=== PATIENT | female | born 1985 | race Caucasian/White ===

== ENCOUNTER 2018-10-27 16:54 | Observation (INO) ==
[2018-10-27] MEDS ORDERED: *HR* Promethazine 25 MG/ML VIAL IVP PRN (19:52)
[2018-10-27] MEDS ORDERED: *HR* Belladonna Alkaloids/Opium 30 MG RECTAL SUPPOSITORY RC PRN (19:52)
[2018-10-27] MEDS ORDERED: OXYCODONE Oral CONC 10 MG/0.5 ML ORAL.SYG SL PRN (19:52)
[2018-10-27] MEDS ORDERED: Ketorolac 15 MG/ML VIAL IVP PRN (19:52)
[2018-10-27] MEDS ORDERED: Ondansetron 4 MG/2 ML VIAL IVP PRN (19:52)
[2018-10-27] MEDS ORDERED: Naloxone 0.4 MG/ML INJ IVP PRN (19:52)
--- NOTE | 2018-10-27 19:59 | Urology History & Physical ---
Date of Encounter: 10/27/18 Time of Encounter: 19:58 Assessment and Plan (1) Ureteral stone with hydronephrosis Status: Acute pt required transfer for large mid ureteral stone. urine has been sent for culture but UA not definative for UTI. started on ABX. no fever. elevated WBC likely reactive. renal function preserved. pt does not wish to attempt trial of passage. states pain too severe and concerned about sepsis. plan for in situ ureteroscopic stone extraction with holmium laser and JJ stent placement. she understands the procedure including risks - pain, stent discomfort, injury to the uirnary tract, stricture, UTI/infection, reaction to contrast, inability to retrieve stone requiring second surgery. History of Present Illness Chief complaint: left flank pain HPI: Ms. Gastelum is a 33 year old female presented to [facility] with left flank pain. hx of kidney stones. ct reveals a 7 mm mid/distal ureteral stone. no fever. +nausea. Past Med Surg Social Fam HX - Past Medical History Medical history: hypertension, kidney stones, thyroid disease Additional medical history: allergies Psychiatric history: anxiety - Past Surgical History Surgical History: appendectomy, cholecystectomy, orthopedic, other (Right wrist ganglion cystectomy) Additional surgical history: Rt wrist ganglion cyst removal, cyst removed from abd. - Social History Smoking Status: Never smoker Smokeless Tobacco Status: No Alcohol use: none Drug use: none Medications and Allergies Cetirizine HCl [Zyrtec] 10 mg PO DAILY 04/19/15 [History] ClonazePAM [Klonopin] 0.5 mg PO BID 04/19/15 [History] Levothyroxine [Synthroid] 75 mcg PO 0630 01/30/16 [History] Ibuprofen [Motrin] 800 mg PO Q8HR #30 tablet 08/31/16 [Rx] Loratadine/Pseudophed (12 HR) [Claritin D (12HR)] 1 each PO BID #20 tab.er.12h 08/31/16 [Rx] Metoprolol [Lopressor] 150 mg PO BID 09/02/16 [History] HYDROcodone/Acet 5/325 mg [[place] 5-325 mg] 1 tab PO Q6H PRN 4 Days #16 tab 09/12/17 [Rx] OxyCODONE/APAP 5/325 [Percocet 5/325 MG] 1 each PO Q6HR PRN 4 Days #16 tablet 09/12/17 [Rx] Allergy/AdvReac Type Severity Reaction Status Date / Time No Known Allergies Allergy Verified 09/12/17 21:36 Review of Systems - Constitutional no chills, no fever(s), no malaise - EENT Nose, mouth and throat: no dizziness - Cardiovascular no chest pain - Respiratory no cough - Gastrointestinal abdominal pain, nausea - Genitourinary Genitourinary: flank pain - Musculoskeletal back pain - Integumentary no erythema - Neurological no confusion - Psychiatric no anxiety - Hematologic/Lymphatic no easy bruising Exam - General physical appearance Present: no distress, no pain - Eyes Present: PERRL, conjunctiva is clear - ENT Present: normal nares, no congestion - Neck Present: no masses, no lymphadenopathy - Respiratory Present: normal respiratory effort - Cardiovascular Cardiovascular exam IM: RRR - Abdomen Abdomen: Present: soft. Absent: suprapubic tenderness - Integumentary Present: no rash, no growths, no abnormal pigmentation - Neurologic Present: normal coordination. Absent: disoriented, confused - Additional Findings mild CVA tenderness Urology Results - Labs All other labs normal.
[2018-10-27] MEDS: clonazePAM 1 MG TABLET PO SCH (23:32)
[2018-10-27] MEDS: *HR* HYDROcodone/Acet 5/325 mg TABLET PO PRN (23:33)
[2018-10-27] MEDS: Metoprolol 100 MG TABLET PO SCH (23:33)
[2018-10-27] MEDS: 0.9 % Sodium Chloride 1,000 ML IVC SCH (23:34)
[2018-10-28] MEDS: *HR* HYDROcodone/Acet 5/325 mg TABLET PO PRN ×2 (07:17→11:34)
[2018-10-28] MEDS ORDERED: Loratadine 10 MG TABLET PO SCH (09:00)
[2018-10-28] MEDS ORDERED: cefTRIAXone 1,000 MG in Water for inj. (sterile) 20 ML 10 ML IVP SCH (09:00)
[2018-10-28] MEDS: Metoprolol 100 MG TABLET PO SCH (09:41)
[2018-10-28] MEDS: clonazePAM 1 MG TABLET PO SCH (09:41)
[2018-10-28] MEDS: 0.9 % Sodium Chloride 1,000 ML IVC SCH (09:42)
--- NOTE | 2018-10-28 13:47 | Anesthesia Evaluation PreOp ---
<Edna Packer - Last Filed: 10/28/18 13:44> Date of Encounter: 10/28/18 - Past History Planned Operation: R-USE w/laser lithotripsy & JJ stent [place] History: Other (Anxiety/Depression) Other Medical History: Renal (Kidney stones), Thyroid (Thyroid dz) Anesthesia History: No Prior Anesthetic Complications, Past Anesthesia (Appy, Debbie, R-ganglion cysectomy, Abdominal Cyst excision) Alcohol Use: none Drug use: none Medications and Allergies Cetirizine HCl [Zyrtec] 10 mg PO DAILY 04/19/15 [History] ClonazePAM [Klonopin] 0.5 mg PO BID 04/19/15 [History] Levothyroxine [Synthroid] 75 mcg PO 0630 01/30/16 [History] Ibuprofen [Motrin] 800 mg PO Q8HR #30 tablet 08/31/16 [Rx] Loratadine/Pseudophed (12 HR) [Claritin D (12HR)] 1 each PO BID #20 tab.er.12h 08/31/16 [Rx] Metoprolol [Lopressor] 150 mg PO BID 09/02/16 [History] HYDROcodone/Acet 5/325 mg [[place] 5-325 mg] 1 tab PO Q6H PRN 4 Days #16 tab 09/12/17 [Rx] OxyCODONE/APAP 5/325 [Percocet 5/325 MG] 1 each PO Q6HR PRN 4 Days #16 tablet 09/12/17 [Rx] Allergy/AdvReac Type Severity Reaction Status Date / Time No Known Allergies Allergy Verified 09/12/17 21:36 - Meds/Allergy Pre-op Review Medications Reviewed: Yes Allergies Reviewed: Yes Beta Blockers on Current Med List: Yes (Metoprolol) If Beta Blockers taken, Date/Time (Last Dose taken): 10/28/2018 @ 0941 Anesthesia Results - Labs Laboratory Results POC Glucose 103 mg/dL (70-99) H 10/28/18 10:44 - Imaging Additional studies: CT/CT abd pelvis wo no iv no oral IMPRESSION: 1. There is 6 mm obstructing calculus in the mid to distal left ureter in the upper pelvis causing mild hydronephrosis and hydroureter. 2. A couple of punctate nonobstructing right renal calculi. 3. Small sliding hiatal hernia. Anesthesia Exam Vital Signs Temp Pulse Resp BP Pulse Ox 10/28/18 10:46 97.6 F 73 18 134/76 95 10/28/18 09:52 99 10/28/18 06:35 97.9 F 65 18 143/87 99 10/28/18 03:46 98.6 F 80 19 115/65 98 10/28/18 00:20 98.1 F 66 19 119/74 99 10/27/18 20:55 98.0 F 57 18 121/75 100 Intake and Output 10/27/18 10/28/18 10/28/18 23:59 07:59 15:59 Intake Total 1010 / 1010 Output Total 400 / 400 400 / 400 Balance -400 / -400 610 / 610 Intake: IV Fluids 1010 / 1010 0.9 % Sodium Chloride 1,000 ML 1000 / 1000 @ 75 mls/hr IVC .[id number] [facility] Rx #:[id number] Rocephin 1,000 MG In Water for inj. (sterile) 10 ML @ 600 mls/ hr IVP DAILY [facility] Rx#:[id number] Oral 0 / 0 Output: Urine 400 / 400 400 / 400 Other: Meal NPO Percent of Meal Consumed 0% # Voids 1 Weight 123.5 kg 123.2 kg Blood Glucose* 85 103 Patient Weight 10/28/18 23:59 Weight 123.2 kg Height: 5'4" Weight: 271# BMI = 47 NPO (# of Hours): MNOc - HEENT Pupil (Motor): Pupils equal, EOMI Mallampati: II Teeth: Normal Oral Opening: Greater than 3 - [place] [place] LOC: Oriented [place] [place] Motor: Normal RUE, Normal LUE, Normal RLE, Normal LLE, Normal Face [place] [place] Sensory: Normal: RUE, LUE, RLE, LLE, Face - Cardiac Rhythm: Regular Murmur: None - Pulmonary Breath Sounds: bilateral Clear Respiratory Effort: Symmetrical Anesthesia Assess/Plan ASA Score: 3 (MO/BMI = 47, HTN, Anxiety/Depression, HYpothryoidism) Level of consciousness: Cooperative, Oriented Anesthetic Plan: General Monitoring Plan: Standard Monitors Recovery Plan: PACU Anes Supervising Prov Stmt: PT seen/evaluated, R&B discussed, questions answered and consent obtained. - MD Maritza <Sinan Valenzuela - Last Filed: 10/28/18 17:55> Date of Encounter: 10/28/18 Time of Encounter: 17:54 - Past History Cardiac History: HTN Pulmonary History: Denies Any Significant HX Other Medical History: GERD Anesthesia Exam Pain Scale: 0 Pain Scale Used: Numeric (1 - 10)
[2018-10-28] MEDS ORDERED: *HR* HYDROmorphone (PF) 1 MG/ML SYRINGE IVP PRN ×2 (13:58→19:28)
[2018-10-28] MEDS ORDERED: *HR* HYDROmorphone 2 MG TABLET PO PRN ×2 (13:58→19:28)
[2018-10-28] MEDS ORDERED: *HR* OxyCODONE Immed Rel 5 MG TABLET PO PRN ×2 (13:58→19:28)
[2018-10-28] MEDS ORDERED: Acetaminophen IV 1,000 MG/100 ML INFUS..BTL IVPB ONE (14:02)
[2018-10-28] MEDS ORDERED: Famotidine 20 MG/2 ML VIAL IVP ONE (14:02)
[2018-10-28] MEDS ORDERED: Pregabalin 75 MG CAPSULE PO ONE (14:02)
--- NOTE | 2018-10-28 18:03 | Discharge Summary ---
Date of Encounter: 10/28/18 Time of Encounter: 18:00 - Discharge Diagnosis (1) Ureteral stone with hydronephrosis Priority: Primary Status: Resolved - Hospital Course Hospital course: Ms. Gastelum is a 33 year old female admitted with a 6-7 mm right midureteral stone. Status post on extraction and stent placement. Plan to discharge after surgery. - Time Spent with Patient Total time spent providing and/or coordinating discharge services: Labs on day of discharge: Labs from last 24 hours 10/28/18 10/28/18 10:44 05:45 POC Glucose 103 H 85 - Discharge Medications Prescriptions: New Sulfamethoxazole/Trimeth DS [Bactrim DS] 1 each PO BID #10 tablet Continue Ibuprofen [Motrin] 800 mg PO Q8HR #30 tablet Loratadine/Pseudophed (12 HR) [Claritin D (12HR)] 1 each PO BID #20 tab.er.12h HYDROcodone/Acet 5/325 mg [[place] 5-325 mg] 1 tab PO Q6H PRN 4 Days #16 tab PRN Reason: Pain ClonazePAM [Klonopin] 0.5 mg PO BID Cetirizine HCl [Zyrtec] 10 mg PO DAILY Levothyroxine [Synthroid] 75 mcg PO 0630 Metoprolol [Lopressor] 150 mg PO BID Discontinued OxyCODONE/APAP 5/325 [Percocet 5/325 MG] 1 each PO Q6HR PRN 4 Days #16 tablet PRN Reason: Pain Home Medications: Cetirizine HCl [Zyrtec] 10 mg PO DAILY 04/19/15 [History] ClonazePAM [Klonopin] 0.5 mg PO BID 04/19/15 [History] Levothyroxine [Synthroid] 75 mcg PO 0630 01/30/16 [History] Ibuprofen [Motrin] 800 mg PO Q8HR #30 tablet 08/31/16 [Rx] Loratadine/Pseudophed (12 HR) [Claritin D (12HR)] 1 each PO BID #20 tab.er.12h 08/31/16 [Rx] Metoprolol [Lopressor] 150 mg PO BID 09/02/16 [History] HYDROcodone/Acet 5/325 mg [[place] 5-325 mg] 1 tab PO Q6H PRN 4 Days #16 tab 10/28/18 [Rx] Sulfamethoxazole/Trimeth DS [Bactrim DS] 1 each PO BID #10 tablet 10/28/18 [Rx] Allergies/Adverse Reactions: Allergy/AdvReac Type Severity Reaction Status Date / Time No Known Allergies Allergy Verified 09/12/17 21:36 Date of admission: 10/27/18 20:23 Primary care physician: Mark Merida MD Discharging clinician: Buzz Barney Anticipated date of discharge: 10/28/18 Exam Initial Vital Signs Temp Pulse Resp BP Pulse Ox 98.0 F 57 18 121/75 100 10/27/18 20:55 10/27/18 20:55 10/27/18 20:55 10/27/18 20:55 10/27/18 20:55 - General physical appearance Present: well developed, no distress - Patient Status Disposition: Home, Self-Care Condition: Good Functional capacity at discharge: independent ambulation Overall status at discharge: patient is progressing back to baseline - Discharge Instructions Follow Up With: Mark Merida MD [Primary Care Provider] - 11/02/18 1:00 pm (Please follow up as schedule with Iraida Rogers) Buzz Barney MD [Partnered Physician] - (My office will call with follow- up) Additional Instructions: Expect stent discomfort including urgency, frequency, burning on urination, light blood in the urine, flank pain during urination Stent can be removed after 72 hours by pulling on the string until the entire stent is removed. Patient can come to the office later this week for stent removal if needed Call if severe symptoms or fever over 101 degrees - Diet and Activity Activity: increase activity as tolerated Diet: advance to your usual diet
--- NOTE | 2018-10-28 18:05 | Operative Note ---
Date of procedure: 10/28/18 Pre-op diagnosis: 7 mm mid ureteral stone Post-op diagnosis: same Procedure: right stone extraction with holmum laser right retrograde pyelogram right JJ stent Anesthesia: GETA Surgeon: Buzz Barney Was there an licensed occupational therapy assistant present: No Estimated blood loss (cc): 0 Specimen: stone Condition: stable Disposition: PACU Procedure in Detail: PROCEDURE IN DETAIL: Patient was taken back to the operating room, positioned supine on the operating table. Anesthesia was applied without complication. They were moved into dorsal lithotomy. Careful attention was maintained to cushion all pressure points for patient's safety. They were prepped and draped in sterile fashion. Time-out was performed with the proper patient and procedure. A 21-[place] rigid cystoscope was inserted into the bladder without difficulty. Systematic examination of bladder revealed no abnormalities. The ureteral orifice was cannulated using a 5-[place] ureteral Catheter and a retrograde pyelogram was performed using Isovue. A filling defect was identified which corresponded to the stone. At that point, a zip wire was placed through the 5-[place] and confirmed in the renal pelvis with fluoroscopy. An 8-10 dilator was then placed over the zip wire to passively dilate the ureteral orifice. A semi-rigid ureteroscope was carefully inserted into the bladder and guided into the ureteral oriface. At that point, the stone was encountered and I felt that it required fragmentation for safe extraction. A 200 micron holmium laser fiber on a setting of 8 and 800 was used to fragment the stone into multiple pieces. The fragments were individually basketed out of the ureter with a 1.9 tipless basket. All stone in the ureter was removed. A 4.8 x 26 ureteral stent was placed over the zip wire under fluoroscopy without complication. The bladder was drained along with the stone fragments. They were collected and sent for stone analysis. The string was left attached to the stent and secured to the patient for easy removal in approximately 72 hours
[2018-10-28] MEDS ORDERED: Isovue-300 50 ML VIAL ONE (18:09)
[2018-10-28] MEDS ORDERED: *HR* Propofol 200 MG/20 ML VIAL IVP ONE (18:21)
[2018-10-28] MEDS ORDERED: *HR* FentaNYL (PF) 100 MCG/2 ML VIAL ONE (18:21)
[2018-10-28] MEDS ORDERED: Lidocaine -MPF 2% 2 ML VIAL ONE (18:21)
[2018-10-28] MEDS ORDERED: *HR* Midazolam HCl 2 MG/2 ML VIAL ONE (18:21)
[2018-10-28] MEDS ORDERED: Ondansetron 4 MG/2 ML VIAL ONE (18:40)
[2018-10-28] MEDS ORDERED: Dexamethasone 4 MG/ML VIAL ONE (18:40)
[2018-10-28] MEDS ORDERED: Ondansetron 4 MG/2 ML VIAL IVP PRN (19:28)
[2018-10-28] MEDS ORDERED: 0.9 % Sodium Chloride 1,000 ML IVC SCH (19:28)
[2018-10-28] MEDS ORDERED: *HR* Belladonna Alkaloids/Opium 30 MG RECTAL SUPPOSITORY RC PRN (19:28)
[2018-10-28] MEDS ORDERED: OXYCODONE Oral CONC 10 MG/0.5 ML ORAL.SYG SL PRN (19:28)
[2018-10-28] MEDS ORDERED: Ketorolac 15 MG/ML VIAL IVP PRN (19:28)
[2018-10-28] MEDS ORDERED: *HR* Promethazine 25 MG/ML VIAL IVP PRN (19:28)
[2018-10-28] MEDS ORDERED: Naloxone 0.4 MG/ML INJ IVP PRN (19:28)
[2018-10-28] MEDS ORDERED: *HR* HYDROcodone/Acet 5/325 mg TABLET PO PRN (19:28)
--- NOTE | 2018-10-28 19:43 | Anesthesia Evaluation Post Op ---
Date of Encounter: 10/28/18 Time of Encounter: 19:43 - Vital Signs Vital Signs: Vital Signs/O2 Sat, Most Current Temp Pulse Resp BP Pulse Ox 97.6 F 75 14 125/87 98 10/28/18 19:17 10/28/18 19:37 10/28/18 19:37 10/28/18 19:37 10/28/18 19:37 - Lungs Lungs: Clear Ascult./Percussion - Airway Airway: Non-obstructed - Cardiovascular Regular Rate - Mental Status Mental Status: Alert & Oriented, Answers Appropriately - Pain Pain Scale: 0 Pain Scale used: Numeric (1 - 10) - Nausea Vomiting Nausea Vomiting: Not Present - Hydration Hydration: NPO, Has not voided - Discharge PostOp Status: Transfer Patient to floor
[2018-10-28] MEDS ORDERED: clonazePAM 1 MG TABLET PO SCH (21:00)
[2018-10-28] MEDS ORDERED: Metoprolol 100 MG TABLET PO SCH (21:00)
[2018-10-28 21:39] VITALS: BP 117/65
[2018-10-29] MEDS ORDERED: cefTRIAXone 1,000 MG in Water for inj. (sterile) 20 ML 10 ML IVP SCH (09:00)
[2018-10-29] MEDS ORDERED: Loratadine 10 MG TABLET PO SCH (09:00)
[2018-11-01 21:50] LABS: Calculi Mass 40 mg
== END 2018-10-28 22:22 | disposition home or self-care (01) ==
LOC: 2ANU
PROVIDERS: ADMIT Urology; ATTEND Urology